=== PATIENT | male | born 2000 | race Caucasian/White ===

== ENCOUNTER 2024-02-13 00:56 | Emergency (ER) | payer OTHER ==
[~2024-02-13] VITALS: Ht 185.4 cm; Wt 95.5 kg
[2024-02-13 01:04] VITALS: TEMP 97.6
[2024-02-13 01:59] VITALS: BP 142/92; PULSE 95
== END 2024-02-13 02:00 | disposition home or self-care (01) ==
LOC: COL.ER 00:56
DX: M70.22 Olecranon bursitis, left elbow (principal); W01.0XXA Fall on same level from slipping, tripping and stumbling without subsequent striking against object, initial encounter